=== PATIENT | female | born 1965 | race Caucasian/White ===

== ENCOUNTER 2016-12-19 06:15 | Day surgery (SDC) | payer OTHER ==
[~2016-12-19] VITALS: Ht 160 cm; Wt 80.9 kg
[~2016-12-19 06:15] MED LIST: ACET1TAB27 PO; ATOR20TA86 PO; BENGAY TP; CALC-190 PO; CARI350 PO; DSS100 PO; FERR1TAB45 PO; FLUT16H NASAL; GLUC-198 PO; LEVO50 PO; LIDOCAINE HCL TP; LISI-661 PO; LORA10TA7 PO; MINE473O2 PO; MORPHINE 15MG PO; MULT-248 PO; NAPR-58 PO; SODIUM CHLORIDE 0.9% 1,000 ML IV ONE; VENL-68 PO; [UNRECOGNIZED DRUG - CODE] TP
[2016-12-19] MEDS ORDERED: SODIUM CHLORIDE 0.9% 0 ML IV ONE (06:43)
[2016-12-19] MEDS ORDERED: BUPIVACAINE HCL/PF 0.75% 10 ML VIAL ONE (07:28)
[2016-12-19] MEDS ORDERED: SODIUM BICARBONATE 50 MEQ/50 ML VIAL ONE (07:29)
[2016-12-19] MEDS ORDERED: LIDOCAINE HCL/PF 1% 30 ML VIAL ONE (07:29)
[2016-12-19] MEDS ORDERED: LIDOCAINE HCL/PF 2% 5 ML VIAL ONE (07:29)
[2016-12-19] MEDS ORDERED: TRIAMCINOLONE ACETONIDE 40 MG/ML VIAL ONE (07:30)
[2016-12-19] MEDS ORDERED: IOHEXOL 300 MG/ML 10 ML VIAL ONE (07:30)
[2016-12-19 07:33] VITALS: BP 127/72
[2016-12-19] MEDS ORDERED: LIDOCAINE 1% 30 ML/SOD BICARB 8.4% 4 ML SQ ONE (07:52)
[2016-12-19] MEDS ORDERED: TRIAMCINOLONE ACETONIDE 40 MG/ML VIAL IARTIC ONE ×2 (07:53)
[2016-12-19] MEDS ORDERED: IOHEXOL 300 MG/ML 10 ML VIAL IARTIC ONE (07:56)
[2016-12-19 08:03] VITALS: BP 136/77
== END 2016-12-19 08:40 | disposition home or self-care (01) ==
LOC: SDS 06:15
PROVIDERS: ATTEND Specialist
DX: M47.816 Spondylosis without myelopathy or radiculopathy, lumbar region (principal); D64.9 Anemia, unspecified; I10 Essential (primary) hypertension; M54.30 Sciatica, unspecified side; E03.9 Hypothyroidism, unspecified; M25.579 Pain in unspecified ankle and joints of unspecified foot; Z72.89 Other problems related to lifestyle; Z98.890 Other specified postprocedural states; Z87.891 Personal history of nicotine dependence
CPT/HCPCS: 64493; J3301; J3490 ×3; Q9967; J7030